=== PATIENT | male | born 1995 | race Caucasian/White ===

== ENCOUNTER 2021-10-08 11:58 | Emergency (ER) | payer OTHER ==
[~2021-10-08] VITALS: Ht 162.6 cm; Wt 69.0 kg
[2021-10-08] MEDS ORDERED: SODIUM CHLORIDE 0.9% 1,000 ML IV ONE (12:15)
[2021-10-08] MEDS ORDERED: ONDANSETRON HCL 4MG/2ML INJ IV ONE (12:30)
[2021-10-08 14:25] LABS: HEMATOCRIT. 46.2 % (42.0-52.0); HEMOGLOBIN. 14.9 g/dL (14.0-18.0); MEAN CORPUSCULAR HEMOGLOBIN 29.4 pg (28.0-32.0); MEAN CORPUSCULAR VOLUME 91.6 fL (80.0-94.0); MEAN PLATELET VOLUME 8.6 fl (7.4-10.4); PLATELET 262 x1000/uL (130-400); RED BLOOD CELL COUNT 5.05 mill/uL (4.7-6.1); RED CELL DISTRIBUTION WIDTH 13.9 % (11.6-14.6)
[2021-10-08 14:31] LABS: CHLORIDE 106 mEq/L (98-107)
[2021-10-08 14:37] LABS: CLARITY URINE CLEAR (CLEAR); COLOR URINE YELLOW (YELLOW); KETONES URINE TRACE (NEGATIVE); LEUKOCYTE ESTERASE URINE NEGATIVE (NEGATIVE); NITRITE URINE NEGATIVE (NEGATIVE); OCCULT BLOOD URINE TRACE (NEGATIVE); PH URINE 5.5 (4.5-8.0); PROTEIN URINE TRACE (NEGATIVE); SPECIFIC GRAVITY URINE 1.017 (1.005-1.030); UROBILINOGEN URINE 0.2 E.U./dL (0.2-1.0)
[2021-10-08 14:45] LABS: CREATINE KINASE 295 IU/L (39-308); ETHANOL BLOOD < 10 mg/dL
[2021-10-08] MEDS ORDERED: DEXTROSE 50% WATER 50ML SYRINGE IV NR (15:00)
[2021-10-08 15:19] LABS: PLATELET ESTIMATE NORMAL
[2021-10-08 16:51] LABS: *AMPHETAMINES SCREEN URINE NEGATIVE (NEGATIVE); *BARBITURATES SCREEN URINE NEGATIVE (NEGATIVE); *BENZODIAZEPINES SCREEN URINE NEGATIVE (NEGATIVE); *COCAINE SCREEN URINE PRESUMTIVE POSITIVE (NEGATIVE); CANNABINOID URINE SCREEN PRESUMTIVE POSITIVE (NEGATIVE); METHADONE URINE SCREEN NEGATIVE (NEGATIVE); OPIATES URINE SCREEN NEGATIVE (NEGATIVE); PHENCYCLIDINE URINE SCREEN NEGATIVE (NEGATIVE)
[2021-10-08 17:28] VITALS: BP 106/44
== END 2021-10-08 17:35 | disposition home or self-care (01) ==
LOC: ER 12:56 → CANBEDREQ 17:13 → ER 17:35
DX: S09.8XXA Other specified injuries of head, initial encounter (principal); R56.9 Unspecified convulsions; F14.10 Cocaine abuse, uncomplicated; E16.2 Hypoglycemia, unspecified; W18.39XA Other fall on same level, initial encounter; Y93.89 Activity, other specified; Y92.89 Other specified places as the place of occurrence of the external cause; Y99.8 Other external cause status
CPT/HCPCS: 36415; 70450; 71045; 80053; 80305; 80320; 81003; 82550; 82962; 83605; 84484; 85025; 96374; 96375; 99285; J2405; J7030; G0480